=== PATIENT | male | born 1960 | race Caucasian/White ===

== ENCOUNTER 2025-01-24 06:03 | Day surgery (SDC) | payer MEDICARE ==
[2025-01-19 13:11] VITALS: BMI 32.8
[2025-01-24] MEDS ORDERED: Lidocaine 1% PF 5 ML VIAL ONE (06:36)
[2025-01-24] MEDS ORDERED: Ondansetron PF 4 MG/2 ML Vial ONE (06:36)
[2025-01-24] MEDS ORDERED: SUGAMMADEX SODIUM 200 MG/2 ML VIAL ONE (06:36)
[2025-01-24] MEDS ORDERED: Rocuronium Bromide 10 MG/ML (10ML VIAL) ONE (06:36)
[2025-01-24] MEDS ORDERED: PROPOFOL 20 ML ONE (06:36)
[2025-01-24] MEDS ORDERED: AFRIN NASAL MIST 15 ML BOT ONE (06:42)
[2025-01-24] MEDS ORDERED: Lidocaine 1% w/Epinephrine 1:200K 30 ML VIAL ONE (06:42)
[2025-01-24 06:51] LABS: Hematocrit 41.2 % (38.8-50.0); Hemoglobin 13.7 g/dL (13.5-17.5)
[2025-01-24 07:07] LABS: Anion Gap 16 mmol/L (10-20); BUN (Urea Nitrogen) 30 mg/dL (8.4-25.7); Calc. Creatinine Clearance 130 mL/min (70-130); Calcium 8.7 mg/dL (7.8-10.44); Carbon Dioxide 26 mmol/L (23-31); Chloride 105 mmol/L (98-107); Glucose 115 mg/dL (80-115); Potassium 3.9 mmol/L (3.5-5.1); Sodium 143 mmol/L (136-145)
[2025-01-24] MEDS ORDERED: CEFAZOLIN 1 GM VIAL ONE (07:09)
[2025-01-24] MEDS ORDERED: MINERAL OIL/WHITE PETROLATUM 3.5 GM TUBE ONE (07:09)
[2025-01-24] MEDS ORDERED: Glycopyrrolate 0.2 MG/ML 5 ML SYRINGE ONE (07:12)
[2025-01-24] MEDS ORDERED: PHENYLEPHRINE-NS 100 MCG/ML 10 ML SYRINGE ONE (07:16)
== END 2025-01-24 09:15 | disposition home or self-care (01) ==
LOC: CSHSDC 06:03
PROVIDERS: ATTEND Otolaryngology Otolaryngic Allergy
PROC: 099Q8ZZ Drainage of Right Maxillary Sinus, Via Natural or Artificial Opening Endoscopic (ICD-10-PCS; principal; 2025-01-24)
PROC: 09BU8ZZ Excision of Right Ethmoid Sinus, Via Natural or Artificial Opening Endoscopic (ICD-10-PCS; 2025-01-24)
DX: J32.8 Other chronic sinusitis (principal); J45.909 Unspecified asthma, uncomplicated; K21.9 Gastro-esophageal reflux disease without esophagitis; G47.33 Obstructive sleep apnea (adult) (pediatric); H61.23 Impacted cerumen, bilateral; I10 Essential (primary) hypertension; M19.90 Unspecified osteoarthritis, unspecified site; E66.9 Obesity, unspecified; Z68.32 Body mass index [BMI] 32.0-32.9, adult; Z96.652 Presence of left artificial knee joint; Z96.612 Presence of left artificial shoulder joint; Z88.0 Allergy status to penicillin; Z79.85 Long-term (current) use of injectable non-insulin antidiabetic drugs; Z79.51 Long term (current) use of inhaled steroids; Z79.899 Other long term (current) drug therapy
CPT/HCPCS: 31254; 31267; 80048; 85014; 85018; J0690; J1100; J2250; J2405; J2704; J3010; J3301; 36415; 88305; 88311; J0169